=== PATIENT | female | born 1950 | race Caucasian/White ===

== ENCOUNTER → 2021-03-21 | Outpatient (CLI) | payer MEDICARE, OTHER ==
--- NOTE | 2021-03-21 15:25 | RAD ---
INDICATION: Screening for osteopenia/osteoporosis. Postmenopausal follow-up COMPARISON: 06/04/2011 TECHNIQUE: Bone densitometry was performed through the lumbar spine and proximal femur. IMPRESSION: Lumbar Spine: BMD: 0.97 T-Score: -1.7 Range: Osteopenic. Similar prior. Proximal Femur: BMD: 0.7 T-Score: -2.1 Range: Osteopenic. Similar to prior. World [employer] Organization Criteria for Bone Density: T-Score: > -1.0: Normal Range < -1.0 to -2.5: Osteopenic Range < -2.5: Osteoporotic Range Electronically signed by: Doe Gatica MD (03/21/2021 3:23 PM) [id number]
== END ==
LOC: DXRAD 14:12
PROVIDERS: ATTEND Family Medicine
DX: M85.89 Other specified disorders of bone density and structure, multiple sites (principal)
CPT/HCPCS: 77080